=== PATIENT | male | born 1965 | race Two or more races ===

== ENCOUNTER 2019-04-06 07:40 | Day surgery (SDC) | payer BC ==
[2019-04-06] MEDS ORDERED: LR 1,000 ML IV ONE (07:50)
--- NOTE | 2019-04-06 08:29 | PDANEPAE ---
ANE History of Present Illness colonoscopy ANE Past Medical History - Cardiovascular History Hx Hypertension: No Hx Arrhythmias: No Hx Chest Pain: No Hx Coronary Artery / Peripheral Vascular Disease: No Hx CHF / Valvular Disease: No Hx Palpitations: No - Pulmonary History Hx COPD: No Hx Asthma/Reactive Airway Disease: No Hx Recent Upper Respiratory Infection: No Hx Oxygen in Use at Home: No Hx Sleep Apnea: No Sleep Apnea Screening Result - Last Documented: Positive Pulmonary History Comment: moise triggers - Neurologic History Hx Cerebrovascular Accident: No Hx Seizures: No Hx Dementia: No - Endocrine History Hx Diabetes: Yes Hypothyroid: No Hyperthyroid: No Obesity: severe Endocrine History Comment: pre-diabetic - Renal History Hx Renal Disorders: No - Liver History Hx Hepatic Disorders: No - Neurological & Psychiatric Hx Hx Neurological and Psychiatric Disorders: Yes Neurological / Psychiatric History Comment: mild anxiety - Cancer History Hx Cancer: No - Congenital Disorder History Hx Congenital Disorders: No - GI History GERD: no Hx Gastrointestinal Disorders: No - Other Health History Other Health History: wears reading glasses - Chronic Pain History Chronic Pain: Yes (lower back) - Surgical History Prior Surgeries: dental procedures only ANE Review of Systems Review of systems is: negative Review of Systems: - Exercise capacity METS (RN): 4 METS ANE Patient History - Allergies Allergies/Adverse Reactions: No Known Allergies Allergy (Verified 04/05/19 15:39) - Home Medications Home medications: home medication list seen and reviewed Home Medications: Metformin HCl 04/05/19 [Last Taken 04/01/19] - NPO status NPO Status: no food or drink >8 hours NPO Since - Liquids (Date): 04/05/19 NPO Since - Liquids (Time): 20:00 NPO Since - Solids (Date): 04/04/19 - Anes Hx Anes Hx: no prior problems - Smoking Hx Smoking Status: Never smoked - Family Anes Hx Family Anes Hx: none Family Hx Anesthesia Complications: unknown- adopted ANE Labs/Vital Signs - Labs Result Diagrams: 04/06/19 08:15 - Vital Signs Blood Pressure: 135/92 Heart Rate: 89 Respiratory Rate: 16 O2 Sat (%): 88 Height: 177.8 cm Weight: 142.882 kg ANE Physical Exam - Airway Neck exam: FROM Mallampati Score: Class 3 Mouth exam: normal dental/mouth exam - Pulmonary Pulmonary: no respiratory distress, clear to auscultation - Cardiovascular Cardiovascular: regular rate and rhythym, no murmur, rub, or gallop - ASA Status ASA Status: III ANE Anesthesia Plan Anesthesia Plan: GA with mask Total IV Anesthesia: Yes
[2019-04-06] MEDS ORDERED: PROPOFOL/EMULSION 500 MG/50 ML BOTTLE IV ONE ×2 (08:42→09:29)
--- NOTE | 2019-04-06 08:57 | PDGENHP ---
History & Physical Chief Complaint: screening colon History of Present Illness: colon screening. hx dm obesity Pertinent Past, Social, Family History: tobacco - no. alcohol - one per week. FHx - adopted. DM obesity Relevant Physical Exam: A+Ox3. CTA. S1S2. +BS soft nt Cardiorespiratory Assessment: class III
[2019-04-06] MEDS ORDERED: NALOXONE HCL 0.4 MG/ML INJ IVP PRN (09:41)
--- NOTE | 2019-04-06 09:41 | POSTANESTH ---
Post Anesthetic Evaluation Cardiovascular Status: Normal, Stable Respiratory Status: Normal, Stable Level of Consciousness/Mental Status: Can Participate in Eval Pain Control: Adequate, Prn Tx Ordered Nausea/Vomiting Control: Adequate, Prn Tx Ordered Complications Possibly Related to Anesthesia: None Noted
--- NOTE | 2019-04-06 10:25 | GIREPORT ---
[facility] - Endoscopy Department Patient Name: Tin Casanova Procedure Date: 04/06/2019 7:55 AM Patient Type: Outpatient Attending MD/ ER Physician: Chance Russo MD Procedure: Colonoscopy Indications: Screening for colorectal malignant neoplasm Providers: Chance Russo MD Referring MD: Alvarez Wilkins MD Medicines: Propofol per Anesthesia = IV general with spont resps Complications: No immediate complications. Estimated blood loss: Minimal. Description of Procedure: After obtaining informed consent, the scope was passed under direct vis ion. Throughout the procedure, the patient's blood pressure, pulse, and oxyg en saturations were monitored continuously. The Colonoscope with irrigatio n channel was introduced through the anus and advanced to the terminal il eum, with identification of the appendiceal orifice and IC valve. The colono scopy was performed without difficulty. The patient tolerated the procedure w ell. The quality of the bowel preparation was good. Findings: The digital rectal exam was normal. The terminal ileum appeared normal. Two semi-sessile polyps were found in the proximal transverse colon. Th e polyps were 5 to 9 mm in size. These polyps were removed with a cold sn are. Resection and retrieval were complete. Estimated blood loss was minimal . A 14 mm polyp was found in the proximal transverse colon. The polyp was semi-sessile. The polyp was removed with a hot snare. Resection and retrieval were complete. Estimated blood loss: none. Two semi-sessile polyps were found in the distal transverse colon. The polyps were 6 to 8 mm in size. These polyps were removed with a cold sn are. Resection and retrieval were complete. Estimated blood loss was minimal . A 10 mm polyp was found in the distal transverse colon. The polyp was semi-pedunculated. The polyp was removed with a hot snare. Resection an d retrieval were complete. Estimated blood loss: none. The exam was otherwise without abnormality. Estimated Blood Loss: Estimated blood loss was minimal. Post Op Diagnosis: - The examined portion of the ileum was normal. - Two 5 to 9 mm polyps in the proximal transverse colon, removed with a cold snare. Resected and retrieved. - One 14 mm polyp in the proximal transverse colon, removed with a hot snare. Resected and retrieved. - Two 6 to 8 mm polyps in the distal transverse colon, removed with a c old snare. Resected and retrieved. - One 10 mm polyp in the distal transverse colon, removed with a hot sn are. Resected and retrieved. - The examination was otherwise normal. Recommendation: - Await pathology results. - My office will call with the pathology result with 5-7 days. If you h ave not heard from my office by 14, do not assume the pathology is noreen l, please call [phone] to get the pathology results. - Repeat colonoscopy date to be determined after pending pathology resu lts are reviewed for surveillance based on pathology results. - Resume previous diet. - Patient has a contact number available for emergencies. The signs and symptoms of potential delayed complications were discussed with the pat ient. Return to normal activities tomorrow. Written discharge instructions we re provided to the patient. - Continue present medications. - Avoid Aspirin and NSAIDs for 7-10 days except as used for cardiac or stroke prevention. - Discharge patient to home (ambulatory). - Return to primary care physician as previously scheduled. - Thank you for allowing me to help in your patient's care. Do not hesi dee to call with any questions. Attending Participation: I personally performed the entire procedure. Rafaela Cotto M.D Chance Russo MD 04/06/2019 10:24:57 AM This report has been signed electronicallyMatthew MD Rafaela Number of Addenda: 0 Note Initiated On: 04/06/2019 7:55 AM Total Procedure Duration Time 0 hours 39 minutes 1 second [email or web address]
[2019-04-06 11:04] VITALS: BP 123/96
== END 2019-04-06 11:11 | disposition home or self-care (01) ==
LOC: FSGY 07:40
PROVIDERS: ATTEND Internal Medicine Gastroenterology
PROC: 0DBL8ZX Excision of Transverse Colon, Via Natural or Artificial Opening Endoscopic, Diagnostic (ICD-10-PCS; principal; 2019-04-06 09:00)
DX: Z12.11 Encounter for screening for malignant neoplasm of colon (principal); D12.3 Benign neoplasm of transverse colon
CPT/HCPCS: J2704